=== PATIENT | male | born 1975 | race American Indian/Alaskan Native ===

== ENCOUNTER 2017-09-04 13:50 | Emergency (ER) | payer OTHER ==
[2017-09-04 14:01] VITALS: RESP 18; O2SAT 100
[2017-09-04] MEDS ORDERED: Iohexol 240 (50 ml) PO ONE (14:25)
[2017-09-04] MEDS ORDERED: Iohexol 240 (50 ml) ONE (14:47)
--- NOTE | 2017-09-04 15:06 | ED PDOC ---
HPI: Abdomen Time Seen by Provider: 09/04/17 14:06 Chief Complaint (Nursing): GI Problem Chief Complaint (Provider): Abdominal pain History Per: Patient History/Exam Limitations: no limitations Onset/Duration Of Symptoms: Days (x1 year), Worse Since (x1 week) Current Symptoms Are (Timing): Still Present Location Of Pain/Discomfort: Diffuse Quality Of Discomfort: Cramping Associated Symptoms: Chills, Nausea (w/ episodes of retching), Loss Of Appetite , Other (weight loss, diffused weakness, malaise, fatigue and syncope episode.) . denies: Fever, Vomiting Exacerbating Factors: Food Additional Complaint(s): Ruth Ann Arita is a 42 year old male, with no significant past medical history, who presents to the emergency department complaining of a diffused crampy abdominal pain onset for a year but worst in the last week. Patient reports pain is associated with nausea and episodes of retching. Patient states pain is worst when he eats but feels it constantly. He also reports normal bowel movements, unintentional weight loss over the last half a year, diffused weakness, malaise, fatigue, chills and syncopal episode last night. Patient states last night he was praying in [place] but when he got up he passed out, had a syncopal episodes and was assisted by bystanders. He was seen by PMD who has him on 2 medications, but doesn't remember the name, that he takes every day but with no relief. Patient states the last few days the pain has been so severe that he hasn't been able to sleep. He denies any vomiting, fever, or known sick contacts. No further medical complaints. PMD: Dr. Meng in the [place]. Past Medical History Reviewed: Historical Data, Nursing Documentation, Vital Signs Vital Signs: Last Vital Signs Temp 98.1 F 09/04/17 17:35 Pulse 82 09/04/17 17:35 Resp 18 09/04/17 17:35 BP 130/78 09/04/17 17:35 Pulse Ox 100 09/04/17 18:43 - Medical History PMH: No Chronic Diseases - Surgical History Surgical History: No Surg Hx - Family History Family History: States: Unknown Family Hx - Social History Current smoker - smoking cessation education provided: No Alcohol: None Drugs: Denies - Immunization History Hx Tetanus Toxoid Vaccination: No Hx Influenza Vaccination: No Hx Pneumococcal Vaccination: No - Home Medications Home Medications: Ambulatory Orders Medication Instructions Recorded Ibuprofen [Motrin] 600 mg PO Q6H #30 tab 04/11/16 Dicyclomine [Bentyl] 20 mg PO BID PRN #30 tab 09/04/17 Omeprazole Magnesium [Prilosec Otc] 20 mg PO DAILY #30 tcp 09/04/17 - Allergies Allergies/Adverse Reactions: Allergies Allergy/AdvReac Type Severity Reaction Status Date / Time No Known Allergies Allergy Verified 04/11/16 02:47 Review of Systems ROS Statement: Except As Marked, All Systems Reviewed And Found Negative Constitutional: Positive for: Chills, Weakness, Malaise, Weight loss. Negative for: Fever Gastrointestinal: Positive for: Nausea (w/ episodes of retching), Abdominal Pain (diffused crampy), Other (loss of appetite). Negative for: Vomiting Neurological: Positive for: Seizures Physical Exam - Reviewed Nursing Documentation Reviewed: Yes Vital Signs Reviewed: Yes - Physical Exam Appears: Positive for: In Acute Distress (mild painful). Negative for: Well ( very thin build) Head Exam: Positive for: ATRAUMATIC, NORMAL INSPECTION, NORMOCEPHALIC Skin: Positive for: Normal Color, Warm, Dry Eye Exam: Positive for: Normal appearance, EOMI, PERRL Neck: Positive for: Painless ROM, Supple Cardiovascular/Chest: Positive for: Regular Rate, Rhythm. Negative for: Murmur Respiratory: Positive for: Normal Breath Sounds. Negative for: Respiratory Distress Gastrointestinal/Abdominal: Positive for: Bowel Sounds (hyperactive), Tenderness (diffused tenderness to palpation) Extremity: Positive for: Normal ROM. Negative for: Tenderness, Deformity, Swelling Neurologic/Psych: Positive for: Alert, Oriented. Negative for: Motor/Sensory Deficits - Laboratory Results Result Diagrams: 09/04/17 15:30 09/04/17 15:30 - ECG O2 Sat by Pulse Oximetry: 100 (RA) Pulse Ox Interpretation: Normal Medical Decision Making Medical Decision Making: Initial Impression: abdominal pain, unintentional weight loss and syncope. Differential includes but not limited to dehydration, electrolyte abnormality, malnutrition, and colitis Initial Plan: --Type and screen --Abd Pelvis PO & IV Contrast --EKG --Alcohol serum --Amylase --CMP --Drug screen, urine --Lact Acid, Plasma --LDH --Lipase --Magnesium --Phosphorus --Urine dipstick --CBC w/ differential --PTT --PT --Omnipaque 240 50 ml PO --Blood culture --Rapid HIV screen --Reevaluation 17:[address] FINDINGS: LOWER THORAX: Heart is mildly enlarged. No significant pericardial effusion. No evidence of effusion or basilar pneumothorax. LIVER: Liver exhibits relatively normal size measuring approximately 16 cm in CC dimension. No obvious hepatic mass or collection. Mild fatty hepatic infiltration. Portal and splenic veins are opacified. GALLBLADDER AND BILE DUCTS: Gallbladder appears incompletely distended. No evidence of intraluminal gallbladder calculi. PANCREAS: The pancreas appears grossly unremarkable so far as can be seen. No obvious pancreatic mass or collection. SPLEEN: Spleen exhibits normal size and attenuation pattern. ADRENALS: Slightly prominent adrenal glands KIDNEYS AND URETERS: . Kidneys demonstrate relatively symmetric nephrograms. No evidence of nephrolithiasis or hydronephrosis. Prominent bilateral extrarenal pelves left larger than right. BLADDER: Urinary bladder is markedly distended. Rule out urinary retention. REPRODUCTIVE: Prostate gland measures approximately 3.65 cm in transverse dimension. APPENDIX: Appendix is not seen with certainty on this study. No obvious inflammatory changes right lower quadrant of the abdomen. BOWEL: Evaluation of the bowel is limited due to incomplete opacification as well as a paucity of intraperitoneal and retroperitoneal fat. The stomach is incompletely distended which presumably accounts for thick- walled appearance. Visualized loops of small bowel exhibit relatively normal contour and caliber. No evidence of acute mechanical small bowel obstruction. Stool and air seen throughout the large bowel. PERITONEUM: No gross free intraperitoneal air. No free or loculated fluid collections. Tiny fat containing umbilical hernia. LYMPH NODES: Unremarkable. No enlarged lymph nodes. VASCULATURE: Unremarkable. No aortic aneurysm. BONES: Minor multilevel degenerative spondylosis of the the lower thoracic and lumbar spine. Minor chronic anterior stature loss L1 segment. OTHER FINDINGS: None. IMPRESSION: Somewhat limited study. Mild fatty hepatic infiltration. Distended urinary bladder; rule out urinary retention. DW patient findings and plan of care using [employer] ticket clerk on [employer]. Also d/w pt's brother Isa on phone, as requested by patient. Pt in no acute distress, with normal workup. STable for dc for further workup. Scribe Attestation: Documented by Philippe Ramirez, acting as a scribe for Perla Berry MD Provider Scribe Attestation: All medical record entries made by the Scribe were at my direction and personally dictated by me. I have reviewed the chart and agree that the record accurately reflects my personal performance of the history, physical exam, medical decision making, and the department course for this patient. I have also personally directed, reviewed, and agree with the discharge instructions and disposition. Disposition - Clinical Impression Clinical Impression: Abdominal pain - Disposition Referrals: Acacia Traore MD [Medical Doctor] - (Call office to make appointment within a week. [facility].) Disposition: Routine/Home Disposition Time: 18:00 Condition: GOOD Prescriptions: Dicyclomine [Bentyl] 20 mg PO BID PRN #30 tab PRN Reason: abdominal pain Omeprazole Magnesium [Prilosec Otc] 20 mg PO DAILY #30 tcp Instructions: Acute Abdomen (Belly Pain) Forms: [employer] ([place])
[2017-09-04 15:26] LABS: BARBITURATES, UR NEGATIVE (NEGATIVE); BENZODIAZEPINES, UR NEGATIVE (NEGATIVE); OPIATES, UR NEGATIVE (NEGATIVE); PHENCYCLIDINE, UR NEGATIVE (NEGATIVE)
[2017-09-04 15:40] LABS: BASO % 0.4 % (0.0-2.0); EOS # 0.1 K/uL (0.0-0.7); EOS % 1.8 % (0.0-4.0); HEMOGLOBIN 14.2 g/dL (12.0-18.0); LYMPH % 21.7 % (20.0-40.0); MEAN CELL VOLUME 93.1 fl (80.0-94.0); MEAN CORPUSCULAR HEMOGLOBIN 31.5 pg (27.0-31.0); MEAN CORPUSCULAR HGB CONC 33.9 g/dL (33.0-37.0); MEAN PLATELET VOLUME 7.7 fl (7.2-11.7); MONO # 0.3 K/uL (0.0-0.8); MONO % 7.2 % (0.0-10.0); NEUT # 3.1 K/uL (1.8-7.0); NEUT % 68.9 % (50.0-75.0); NRBC % 0.2 % (0.0-0.0); RBC 4.51 Mil/uL (4.40-5.90); RED CELL DISTRIBUTION WIDTH 12.1 % (11.5-14.5); WHITE BLOOD COUNT 4.6 K/uL (4.8-10.8)
[2017-09-04 15:52] LABS: INR 1.1 (0.9-1.2); PROTHROMBIN TIME 12.2 Seconds (9.8-13.1)
[2017-09-04 15:53] LABS: PARTIAL THROMBOPLASTIN TIME 29.1 Seconds (25.6-37.1)
[2017-09-04 15:57] LABS: ALB/GLOB RATIO 1.3 (1.0-2.1); ALBUMIN 4.4 g/dL (3.5-5.0); ALT/SGPT 43 U/L (21-72); AMYLASE 74 U/L (30-110); AST/SGOT 49 U/L (17-59); BLOOD UREA NITROGEN 13 mg/dl (9-20); CALCIUM 9.3 mg/dL (8.4-10.2); GFR AFRICAN-AMERICAN > 60; GFR NON-AFRICAN AMERICAN > 60; LIPASE 108 U/L (23-300)
[2017-09-04] MEDS ORDERED: Iohexol 300 100 ML IJ ONE (16:41)
[2017-09-04] MEDS ORDERED: Sodium Chloride 0.9% 100 ML ONE (16:41)
[2017-09-04 17:35] VITALS: BP 130/78; PULSE 82; TEMP 98.1
--- NOTE | 2017-09-04 17:42 | CT ---
PROCEDURE: CT scan abdomen pelvis dated 09/04/2017 HISTORY: Diffuse abdominal pain unintentional weight loss COMPARISON: No prior TECHNIQUE: Contiguous axial images of the abdomen and pelvis performed following oral and intravenous injection of approximately 95 cc of Omnipaque 300 contrast material. Additional 2 dimensional sagittal and coronal reformats generated. Radiation dose: Total exam DLP = 372.[address] exam was performed using one or more of the following dose reduction techniques: Automated exposure control, adjustment of the mA and/or kV according to patient size, and/or use of iterative reconstruction technique. FINDINGS: LOWER THORAX: Heart is mildly enlarged. No significant pericardial effusion. No evidence of effusion or basilar pneumothorax. LIVER: Liver exhibits relatively normal size measuring approximately 16 cm in CC dimension. No obvious hepatic mass or collection. Mild fatty hepatic infiltration. Portal and splenic veins are opacified. GALLBLADDER AND BILE DUCTS: Gallbladder appears incompletely distended. No evidence of intraluminal gallbladder calculi. PANCREAS: The pancreas appears grossly unremarkable so far as can be seen. No obvious pancreatic mass or collection. SPLEEN: Spleen exhibits normal size and attenuation pattern. ADRENALS: Slightly prominent adrenal glands KIDNEYS AND URETERS: . Kidneys demonstrate relatively symmetric nephrograms. No evidence of nephrolithiasis or hydronephrosis. Prominent bilateral extrarenal pelves left larger than right. BLADDER: Urinary bladder is markedly distended. Rule out urinary retention. REPRODUCTIVE: Prostate gland measures approximately 3.65 cm in transverse dimension. APPENDIX: Appendix is not seen with certainty on this study. No obvious inflammatory changes right lower quadrant of the abdomen. BOWEL: Evaluation of the bowel is limited due to incomplete opacification as well as a paucity of intraperitoneal and retroperitoneal fat. The stomach is incompletely distended which presumably accounts for thick-walled appearance. Visualized loops of small bowel exhibit relatively normal contour and caliber. No evidence of acute mechanical small bowel obstruction. Stool and air seen throughout the large bowel. PERITONEUM: No gross free intraperitoneal air. No free or loculated fluid collections. Tiny fat containing umbilical hernia. LYMPH NODES: Unremarkable. No enlarged lymph nodes. VASCULATURE: Unremarkable. No aortic aneurysm. BONES: Minor multilevel degenerative spondylosis of the the lower thoracic and lumbar spine. Minor chronic anterior stature loss L1 segment. OTHER FINDINGS: None. IMPRESSION: Somewhat limited study. Mild fatty hepatic infiltration. Distended urinary bladder; rule out urinary retention.
--- NOTE | 2017-09-05 21:27 | CARD ---
APPROVED REPORT EKG Measurement Heart [id number] <Conclusion> Sinus bradycardia Otherwise normal ECG
== END 2017-09-04 20:23 | disposition home or self-care (01) ==
LOC: H.ER 13:50
DX: R10.9 Unspecified abdominal pain (principal)
CPT/HCPCS: 74177; 80053; 80320; 80324; 80345; 80346; 80349; 80353; 80358; 80361; 82150; 83605; 83615; 83690; 83735; 83992; 84100; 85025; 85610; 85730; 86850; 86900; 87040; 87390; 93005; 99284; Q9966; Q9967